=== PATIENT | female | born 1945 | race Asian ===

== ENCOUNTER 2022-03-27 13:33 | Emergency (ER) | payer MEDICARE ==
[~2022-03-27] VITALS: Ht 149.9 cm; Wt 99.8 kg
[2022-03-27 13:33] VITALS: BP_SYST 159
--- NOTE | 2022-03-27 13:33 | NUR ---
Placed in room 04 . Placed on supervisor cutting and sewing room, blood pressure machine and pulse oximeter. To gown for exam. Side rails up.
--- NOTE | 2022-03-27 13:35 | NUR ---
ER DR. DUPONT AT THE BEDSIDE EXAMINING PT
--- NOTE | 2022-03-27 13:40 | NUR ---
Patient transported to radiology via GURNEY, accompanied by RN AND STAFF.
--- NOTE | 2022-03-27 13:40 | NUR ---
PT [facility] 66 FROM HOME, PER EMS PT [facility] 0930 THIS AM. 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 PT ARRIVES WITH NO FACIAL DROOP, AOX2-3, ABLE TO ANSWER QUESTION AT TIMES BUT SLOW RECALL AND CONFUSION WITH SIMPLE COMMANDS. PER EMS PT HAD A-FIB ENROUTE WHICH IS NEW ONSET. PT ARRIVES WITH #[id number] PATENT. VSS
--- NOTE | 2022-03-27 13:43 | NUR ---
Patient transported to radiology via GURNEY, accompanied by THIS RN.
[2022-03-27] MEDS ORDERED: iohexoL 350 mgI/mL, 100 ML INFUS..BTL IV ONE (13:54)
--- NOTE | 2022-03-27 14:30 | NUR ---
PT ASSISTED TO BEDSIDE COMMODE PER REQUEST
[2022-03-27 14:38] LABS: BASOPHILS % (AUTO) 0.5 % (0.0-2.0); EOSINOPHILS % (AUTO) 0.4 % (0.0-4.0); HEMATOCRIT 39.5 % (36-48); HEMOGLOBIN 13.2 g/dL (12.0-16.0); LYMPHOCYTES # (AUTO) 0.9 K/uL (1.0-5.5); MEAN CORPUSCULAR HEMOGLOBIN 33 pg (27-31); MEAN CORPUSCULAR HGB CONC 33 % (32-36); MEAN CORPUSCULAR VOLUME 98 fL (79.0-98.0); MONOCYTES # (AUTO) 0.6 K/uL (0.0-1.0); MONOCYTES % (AUTO) 6.7 % (1.7-9.3); NEUTROPHILS % (AUTO) 82.4 % (40.0-70.0); PLATELET COUNT (AUTO) 202 K/uL (130-430); RED BLOOD CELL COUNT(AUTO) 4.02 MIL/uL (4.2-6.2); RED CELL DISTRIBUTION WIDTH 13.6 % (9.0-15.0); WHITE BLOOD COUNT (AUTO) 8.5 K/uL (4.8-10.8)
--- NOTE | 2022-03-27 15:00 | NUR ---
DAUGHTER AT THE BEDSIDE
[2022-03-27 15:01] LABS: INR 0.9 (0.8-1.2); PROTHROMBIN TIME 9.9 SECS (9.5-12.5)
[2022-03-27 15:13] LABS: ANION GAP 9 (5-15); CALCIUM 8.9 mg/dL (8.4-11.0); CHLORIDE 104 mmol/L (98-107); CREATININE 1.27 mg/dL (0.55-1.30); GLUCOSE 96 mg/dL (70-99); UREA NITROGEN, BLOOD 19 mg/dL (8-21)
[2022-03-27 15:28] LABS: ALANINE AMINOTRANSFERASE 12 U/L (12-78); ALBUMIN 3.6 g/dL (3.4-4.8); ASPARTATE AMINOTRANSFERASE 17 U/L (10-37); TOTAL BILIRUBIN 0.5 mg/dL (0.0-1.0)
[2022-03-27 15:46] LABS: BILIRUBIN,URINE NEGATIVE (NEGATIVE); CLARITY/URINE CLEAR (CLEAR); COLOR,URINE YELLOW (YELLOW); GLUCOSE,URINE NEGATIVE (NEGATIVE); KETONES,URINE NEGATIVE (NEGATIVE); LEUKOCYTE ESTERASE ,URINE 1+ (NEGATIVE); NITRITE, URINE NEGATIVE (NEGATIVE); PROTEIN URINE NEGATIVE (NEGATIVE); UROBILINOGEN,URINE 0.2 (0.2-1.0)
[2022-03-27 15:52] LABS: BLOOD, URINE TRACE (NEGATIVE)
[2022-03-27 15:55] LABS: BACTERIA,URINE None Seen /HPF (None Seen); MUCUS,URINE None Seen /LPF (None Seen); RBC,URINE 0-3 /HPF (0-3)
[2022-03-27 16:16] LABS: BARBITURATE, URINE NEGATIVE (NEG <=200); BENZODIAZEPINE, URINE NEGATIVE (NEG <=150); CANNABINOID, URINE NEGATIVE (NEG <=50); COCAINE, URINE NEGATIVE (NEG <=150); METHAMPHETAMINES SCREEN,URINE NEGATIVE (NEG <=500); OPIATE, URINE NEGATIVE (NEG <=100); PHENCYCLIDINE SCREEN,URINE NEGATIVE (NEG <=25); UR TRICYCLIC ANTIDEPRESSANTS NEGATIVE (NEG <=300); URINE AMPHETAMINE NEGATIVE (NEG <=500); URINE METHADONE NEGATIVE (NEG <=200); URINE OXYCODONE SCREEN NEGATIVE (NEG <=100); URINE PROPOXYPHENE SCREEN NEGATIVE (NEG <=300)
[2022-03-27] MEDS ORDERED: IBUP-1969 PO (18:24)
[2022-03-27] MEDS ORDERED: DOCU-144 PO (18:24)
[2022-03-27] MEDS ORDERED: HYDR-3917 PO (18:24)
--- NOTE | 2022-03-27 18:37 | NUR ---
REPORT GIVEN TO LEATHA VELASQUEZ RN AT [facility]
--- NOTE | 2022-03-27 18:38 | NUR ---
Patient to be transferred to [facility] Is being transferred due to higher level of care. Receiving facility has accepting physician and available space. ER physician has signed transfer form. Patient or responsible democrat has agreed to transfer and signed form. Patient belongings inventoried and will be sent with patient. Copy of nursing notes, lab reports, EKG, Physicians Orders and X-rays to be sent with patient. Report called to ERAN VELASQUEZ at receiving facility. Receiving physician is DR. SMILEY. [facility] ambulance service has been called for transfer. ETA is 1900.
[2022-03-27 19:08] VITALS: BP_SYST 159
--- NOTE | 2022-03-27 19:21 | NUR ---
TRANSPORT HERE TO TAKE PT
== END 2022-03-27 19:08 | disposition short-term general hospital (02) ==
LOC: SED 13:33
DX: G45.9 Transient cerebral ischemic attack, unspecified (principal); G93.40 Encephalopathy, unspecified; R41.0 Disorientation, unspecified; I10 Essential (primary) hypertension; M62.81 Muscle weakness (generalized); Z79.899 Other long term (current) drug therapy; Z20.822 Contact with and (suspected) exposure to COVID-19
CPT/HCPCS: 99285; 70496; 71045; 87426; 80307; 80053; 82550; 85025; 85610; 85730; 86886; 86900; 86901; 87086; 84484; 36415; 93005; 70498; 70450; 81000; 76376; Q9967